=== PATIENT | female | born 1995 | race Caucasian/White ===

== ENCOUNTER 2016-12-28 16:37 | Emergency (ER) | payer SELFPAY ==
[2016-12-28] MEDS ORDERED: ONDANSETRON 2MG/ML, 2ML IVPush ONE (17:00)
[2016-12-28] MEDS ORDERED: SODIUM CHLORIDE FLUSH 10ML SYR IVF ONE (17:00)
[2016-12-28] MEDS ORDERED: SODIUM CHLORIDE 0.9% 1,000ML IVBOLUS ONE (17:00)
[2016-12-28 17:20] LABS: BLOOD UREA NITROGEN 13 mg/dL (7-18)
[2016-12-28] MEDS ORDERED: MORPHINE SULFATE 4 MG/ML, 1ML ONE ×2 (17:28→20:09)
[2016-12-28] MEDS ORDERED: ONDANSETRON 2MG/ML, 2ML ONE (17:28)
[2016-12-28] MEDS: MORPHINE SULFATE 4 MG/ML, 1ML IVPush PRN ×2 (17:34→20:12)
[2016-12-28] MEDS ORDERED: OMNIPAQUE 350 MG/ML, 100ML BOTTLE ONE (19:46)
[2016-12-28] MEDS ORDERED: KETOROLAC 30 MG/1 ML ONE (20:19)
[2016-12-28 20:30] VITALS: BP 117/77
[2016-12-28] MEDS ORDERED: KETOROLAC 30 MG/1 ML IVPush ONE (20:30)
== END 2016-12-28 20:53 | disposition home or self-care (01) ==
LOC: ED 20:26
DX: R10.31 Right lower quadrant pain (principal)
CPT/HCPCS: 36415; 74177; 76830; 80048; 81003; 82040; 84703; 85025; 96374; 96375; 96376; 99285; J1885; J2405; J7030; Q9967

== ENCOUNTER 2016-12-29 22:55 | Emergency (ER) | payer SELFPAY ==
[~2016-12-29] VITALS: Ht 160 cm; Wt 57.3 kg
[2016-12-29] MEDS ORDERED: DICYCLOMINE 20 MG TABLET PO ONE (23:30)
[2016-12-29] MEDS ORDERED: ONDANSETRON 2MG/ML, 2ML IVPush ONE (23:30)
[2016-12-29] MEDS ORDERED: SODIUM CHLORIDE 0.9% 1,000ML IVBOLUS ONE (23:30)
[2016-12-29] MEDS ORDERED: FAMOTIDINE 20 MG/2 ML IVP ONE (23:30)
[2016-12-29] MEDS ORDERED: KETOROLAC 30 MG/1 ML IVPush ONE (23:30)
[2016-12-29] MEDS ORDERED: SODIUM CHLORIDE FLUSH 10ML SYR IVF ONE (23:30)
[2016-12-29] MEDS ORDERED: ONDANSETRON 2MG/ML, 2ML ONE (23:33)
[2016-12-29] MEDS ORDERED: FAMOTIDINE 20 MG/2 ML ONE (23:33)
[2016-12-29] MEDS ORDERED: KETOROLAC 30 MG/1 ML ONE (23:33)
[2016-12-29 23:45] LABS: BLOOD UREA NITROGEN 11 mg/dL (7-18)
[2016-12-30 01:04] VITALS: BP 116/78
== END 2016-12-30 01:07 | disposition home or self-care (01) ==
LOC: ED 23:59
DX: R10.31 Right lower quadrant pain (principal); R10.33 Periumbilical pain; R11.0 Nausea
CPT/HCPCS: 36415; 80048; 82040; 85025; 96361; 96374; 96375; 99285; J1885; J2405; J7030; S0028